=== PATIENT | female | born 1960 | race Two or more races ===

== ENCOUNTER 2016-09-24 21:17 | Emergency (ER) | payer SELFPAY ==
[~2016-09-24] VITALS: Ht 149.9 cm; Wt 65.9 kg
[2016-09-24] MEDS ORDERED: diphenhdrAMINE HCL 50 MG/1 ML VL IV ONE (22:45)
[2016-09-24] MEDS ORDERED: diphenhdrAMINE HCL 50 MG/1 ML VL IM ONE (23:00)
[2016-09-24 23:03] VITALS: BP 136/90
[2016-09-24] MEDS ORDERED: FLUCONAZOLE 100 MG TAB PO ONE (23:30)
== END 2016-09-24 23:46 | disposition home or self-care (01) ==
LOC: ER 21:24
DX: L03.317 Cellulitis of buttock (principal); E11.9 Type 2 diabetes mellitus without complications; Z90.710 Acquired absence of both cervix and uterus; W57.XXXA Bitten or stung by nonvenomous insect and other nonvenomous arthropods, initial encounter; Y93.89 Activity, other specified; Y92.89 Other specified places as the place of occurrence of the external cause; Y99.8 Other external cause status
CPT/HCPCS: 96372; 99283; J1200